=== PATIENT | female | born 1945 | race Caucasian/White ===

== ENCOUNTER → 2016-08-15 | Outpatient (CLI) | payer MEDICARE, BC ==
[~2016-08-15] MED LIST: ALBUTEROL MININEB NEB; ASPIRIN81 M1 PO; ASPIRIN81 M2 PO; CENTRUM SILVER PO; CITALOPRAM HBR40 MG PO; FISH OIL 1,0001 EACH PO; FRESHKOTE15 ML OS; HYDROCHLOROTHIA25 MG PO; IBUPROFEN800 MG PO; KLONOPIN0.5 MG PO; LEVAQUIN750 MG PO; LEVOTHROID25 MCG PO; LEVOXYL75 MC1 PO; LORTAB 5/500 TA1 TA1; LORTAB 5/500 TA1 TA1 PO; MEVACOR PO; MEVACOR40 MG PO; NASONEX17 GM; OMEPRAZOLE40 MG PO; PREDNISONE PO; PROAIR HFA8.5 GM IH; PROMETHAZINE CODEINE; ROPINIROLE HCL1 MG PO; SINGULAIR PO; SYMBICORT INH; SYNTHROID PO; TESSALON200 MG PO; TOBRADEX EYE DRO5 ML OS; VERAPAMIL ER180 MG PO; VITAMIN D-32000 UNI1 PO; ZITHROMAX PO
[2016-08-15 10:16] LABS: HEMATOCRIT 41.5 % (35.0-45.0); HEMOGLOBIN 14.3 gm/dL (12.0-16.0); RED CELL DISTRIBUTION WIDTH 13.4 % (11.0-15.5)
[2016-08-15 10:31] LABS: MEAN CORPUSCULAR HEMOGLOBIN 30.1 PG (28-34); MEAN CORPUSCULAR HGB CONC 34.6 g/dL (30-36); MEAN PLATELET VOLUME 10.1 FL (6.5-11.5); RED BLOOD COUNT 4.77 X10e (3.90-5.30); WHITE BLOOD COUNT 9.1 X10e3 (4.0-10.5)
[2016-08-15 10:37] LABS: ALBUMIN SERUM 3.5 g/dL (3.5-5.0); BILIRUBIN,TOTAL 0.6 mg/dL (0.2-2.0); BUN/CREATININE RATIO 15.71; CALCIUM SERUM 8.7 mg/dL (8.4-10.2); CREATININE SERUM 0.7 mg/dL (0.6-1.4); PROTEIN TOTAL SERUM 6.9 g/dL (6.0-8.3)
[2016-08-15 10:51] LABS: POTASSIUM 3.1 mmol/L (3.5-5.1); URINE APPEARANCE CLEAR; URINE BILIRUBIN NEG (NEG); URINE BLOOD 2+ (NEG); URINE COLOR YELLOW; URINE GLUCOSE NEG (NORM); URINE KETONE NEG (NEG); URINE LEUKOCYTE ESTERASE NEG (NEG); URINE NITRATE NEG (NEG); URINE PROTEIN NEG (NEG); URINE SPECIFIC GRAVITY 1.015 (1.003-1.035)
[2016-08-15 10:52] LABS: MICRO INDICATED? YES
[2016-08-15 11:06] LABS: URINE BACTERIA NEG (NEG); URINE SQUAMOUS EPITHELIAL CELL FEW /[HPF]; URINE WBC 0-2 /[HPF] (0-5)
[2016-08-15 11:15] LABS: THYROID STIMULATING HORMONE 1.03 uIU/ml (0.34-5.60)
[2016-08-15 15:02] LABS: FREE T3 3.2 pg/mL (2.5-3.9)
[2016-08-15 15:03] LABS: FREE THYROXIN (T4) 1.24 ng/dL (0.58-1.64)
[2016-08-16 16:21] LABS: T3 TOTAL 120 ng/dL (76-181)
[2016-08-21 10:00] LABS: T3 UPTAKE REF; T4 (THYROXINE) REF
== END | disposition home or self-care (01) ==
LOC: SLABONLY 09:59
PROVIDERS: Family Medicine
DX: E53.8 Deficiency of other specified B group vitamins (principal); E55.9 Vitamin D deficiency, unspecified; R73.9 Hyperglycemia, unspecified; E03.9 Hypothyroidism, unspecified; I27.2 Other secondary pulmonary hypertension; E78.4 Other hyperlipidemia
CPT/HCPCS: 36415; 80053; 80061; 81003; 82306; 82607; 84436; 84439; 84443; 84479; 84480; 84481; 85027; 87086